=== PATIENT | female | born 1940 | race Caucasian/White ===

== ENCOUNTER → 2016-09-12 | Outpatient (CLI) | payer MEDICARE, BC ==
--- NOTE | 2016-09-13 14:18 | MAM ---
History: Well woman exam. Date of exam: 09/12/2016 Services provided: Bilateral full field digital screening mammography. CAD, the images were reviewed with R2 computer aided detection. FINDINGS: Glandular tissue is nodular in contour and of increased mammographic density. Comparison with 2014 study. No dominant mass, architectural distortion or clustered microcalcification. IMPRESSION: Benign exam Recommendation: Routine annual mammography BIRAD CATEGORY: 2 BENIGN Electronically signed by: Lin Barron MD 09/13/2016 2:18 PM CDT Workstation: [id number]
== END | disposition home or self-care (01) ==
LOC: MAMMO 15:27
PROVIDERS: ATTEND Family Medicine
DX: Z12.31 Encounter for screening mammogram for malignant neoplasm of breast (principal)

== ENCOUNTER → 2017-01-26 | Outpatient (CLI) | payer MEDICARE, BC | END | disposition home or self-care (01) | LOC: GMA 14:52 | PROVIDERS: ATTEND Family Medicine | DX: N39.0 Urinary tract infection, site not specified (principal) ==

== ENCOUNTER → 2017-03-30 | Outpatient (CLI) | payer MEDICARE, BC ==
--- NOTE | 2017-03-31 12:42 | CT ---
EXAM DESCRIPTION: Abdomen/Pelvis w/Contrast CLINICAL HISTORY: PELVIC AND PERINEAL PAIN COMPARISON: Upper GI December 23, 2015. TECHNIQUE: Postcontrast multidetector CT imaging of the abdomen and pelvis was performed. Multiplanar reconstructions were generated. This exam was performed according to our departmental dose-optimization program which includes automated exposure control, adjustment of the mA and/or kV according to patient size and/or use of iterative reconstruction technique. FINDINGS: Lung bases: No acute disease process in the lung bases. Liver: Multiple circumscribed centrally low attenuating cysts/hamartomas of the liver are present. No aggressive liver lesions demonstrated. No intrahepatic ductal dilatation. Gallbladder and biliary system: Normal age-related changes. Pancreas: Unremarkable. Spleen: Unremarkable. Adrenal glands: Normal Kidneys: Approximately 4 separate stones identified within the central right renal collecting system measuring between 2 and 3 mm respectively. Approximately 4 small stones are also identified within the contralateral left central renal collecting system measuring between 2 and 4 mm respectively. No ureteral stones are present. No aggressive renal lesions. No hydronephrosis. Bladder: No abnormal bladder mucosal enhancement. Gastrointestinal: Remote surgical changes of the left colon suspected. Correlate for surgical history. No acute gastrointestinal obstruction or inflammation is present. Small hiatal hernia seen. Pelvic organs: Unremarkable Other: No free fluid, free intraperitoneal gas or lymphadenopathy. No aggressive lytic or blastic osseous lesions are present . Usual degenerative changes noted throughout the lumbar spine. IMPRESSION: No specific CT findings explain the patient's presenting symptoms of acute pelvic/perineal pain. Nonobstructing bilateral nephrolithiasis. Incidental/chronic findings described above. Electronically signed by: Marc Barth MD 03/31/2017 12:41 PM [facility]
== END | disposition home or self-care (01) ==
LOC: CT 11:47
PROVIDERS: ATTEND Family Medicine
DX: N20.0 Calculus of kidney (principal); R10.2 Pelvic and perineal pain

== ENCOUNTER 2017-06-23 21:24 | Emergency (ER) | payer MEDICARE, BC ==
[2017-06-23 21:44] VITALS: TEMP 98; O2SAT 96
--- NOTE | 2017-06-23 22:16 | ED.PDOC ---
History of Present Illness - General Chief Complaint: Lower Extremity Injury Stated Complaint: left foot injury, rolled foot in pothole Time Seen by Provider: 06/23/17 22:04 Source: patient Exam Limitations: no limitations - History of Present Illness Initial Comments: Karen Warren 77 y/o female stated she was walking at [employer] and stepped on a shallow pothole twisted her left foot then fell to the ground landing on her right knee.Had dull pain weight bearing left foot after incident and drove herself to ER.Denies any other injuries. Occurred: just prior to arrival, this evening Pain - Lower Extremity: moderate: Left Foot Method of Injury: twisted Improving Factors: rest Worsening Factors: movement Associated Symptoms: pain left foot Allergies/Adverse Reactions: Allergies Sulfa Drugs Allergy (Verified 06/23/17 21:44) Home Medications: Ambulatory Orders Pantoprazole Sodium 07/04/14 Pravachol 07/04/14 Propranolol HCl 07/04/14 Sumatriptan 07/04/14 Tramadol HCl 50 mg PO BID #30 tab 06/23/17 Review of Systems - Review of Systems Constitutional: States: no symptoms reported EENTM: States: no symptoms reported Respiratory: States: no symptoms reported Cardiology: States: no symptoms reported Musculoskeletal: States: see HPI Neurological: States: no symptoms reported All other Systems: Reviewed and Negative, No Change from Baseline Past Medical History (General) - Patient Medical History Hx Seizures: No Hx Stroke: No Hx Dementia: No Hx Asthma: No Hx of COPD: No Hx Cardiac Disorders: No Hx Congestive Heart Failure: No Hx Pacemaker: No Hx Hypertension: No Hx Thyroid Disease: No Hx Diabetes: No Hx Gastroesophageal Reflux: Yes Hx Renal Disease: No Hx Cancer: No Hx of HIV: No Hx Hepatitis C: No Hx MRSA: No Hx Other PMH: Yes - dyslipidemia Surgical History: tonsillectomy - cataract - Vaccination History Hx Tetanus, Diphtheria Vaccination: No Hx Influenza Vaccination: Yes Hx Pneumococcal Vaccination: Yes - Social History Hx Alcohol Use: No Hx Substance Use: No Hx Substance Use Treatment: No Hx Depression: Yes Hx Physical Abuse: No Hx Emotional Abuse: No - Activities of Daily Living Grooming Ability: Independent Eating (Feeding) Ability: Independent Toileting Ability: Independent - Female History Patient : No Family Medical History - Family History Mother Family History: Unknown Hx Family Cancer: Yes - thyroid-brother Physical Exam - Physical Exam General Appearance: Alert, Comfortable, No apparent distress Eyes, Ears, Nose, Throat: normal ENT inspection Neck: full range of motion, supple Cardiovascular/Respiratory: regular rate, rhythm, no M/R/G, normal peripheral pulses, no JVD Gastrointestinal/Abdominal: non-tender, no organomegaly Back: no vertebral tenderness Thigh/Hip: no evidence of injury Leg: no evidence of injury Knee: normal ROM, other - mild abrasion/ecchymosis right knee Ankle: no evidence of injury Foot: bone tenderness - left 5th metatarsal, soft tissue tenderness - (L) 5th metatarsal, swelling - (L) 5th metatarsal Progress - Progress Progress: 06/23/17 22:21 Vital Signs - 8 hr 06/23/17 21:30 Temperature 98.0 F Pulse Rate [ 66 monitor] Respiratory 16 Rate Blood Pressure 140/75 [Left Arm] O2 Sat by Pulse 96 Oximetry Departure - Departure Clinical Impression: Fracture of metatarsal bone of left foot Qualifiers: Encounter type: initial encounter Metatarsal bone: fifth Fracture type: closed Fracture alignment: displaced Qualified Code(s): S92.352A - Displaced fracture of fifth metatarsal bone, left foot, initial encounter for closed fracture Time of Disposition: 22:43 Disposition: Discharge to Home or Self Care Condition: Fair Departure Forms: ED Discharge - Pt. Copy, Patient Portal Self Enrollment Instructions: DI for June Stress Fracture, June Stress Fracture Referrals: Jose Tavares MD [Primary Care Provider] - 1-2 Weeks Prescriptions: Tramadol HCl 50 mg PO BID #30 tab Home Medications: Ambulatory Orders Pantoprazole Sodium 07/04/14 Pravachol 07/04/14 Propranolol HCl 07/04/14 Sumatriptan 07/04/14 Tramadol HCl 50 mg PO BID #30 tab 06/23/17 Additional Instructions: follow up with primary Md in 10-14 days ;elevate left foot 20 degrees at bedtime
--- NOTE | 2017-06-23 22:35 | RAD ---
EXAM: Foot,Left 3 Views CLINICAL INDICATION: 77-year-old female status post fall on LEFT foot. TECHNIQUE: Three views LEFT foot were obtained in AP, lateral and oblique projections COMPARISON: None. FINDINGS: Minimally displaced fracture of the base of the fifth digit metatarsal. The joint spaces are preserved. No soft tissue abnormalities are seen. Mild hallux valgus deformity. Mild degenerative changes of the first metatarsal phalangeal joint with slight joint space narrowing and subchondral sclerosis. IMPRESSION: Minimally displaced fracture of the base of the fifth digit metatarsal. Electronically signed by: Harriett Mukherjee MD 06/23/2017 10:34 PM CDT
[2017-06-23] MEDS ORDERED: HYDROCOD/APAP 7.5/325 (ER DISP) #3 TAB PO ONE (22:44)
[2017-06-23 22:55] VITALS: BP 141/84
== END 2017-06-23 22:56 | disposition home or self-care (01) ==
LOC: ER 21:24
DX: S92.352A Displaced fracture of fifth metatarsal bone, left foot, initial encounter for closed fracture (principal); E78.5 Hyperlipidemia, unspecified; X50.1XXA Overexertion from prolonged static or awkward postures, initial encounter; Y92.481 Parking lot as the place of occurrence of the external cause

== ENCOUNTER → 2017-09-13 | Outpatient (CLI) | payer MEDICARE, BC ==
--- NOTE | 2017-09-15 10:48 | MAM ---
EXAM DESCRIPTION: 3D Screening BILATERAL : Digital Mammography. CLINICAL HISTORY: 77 years Female SCREENING . No complaints. No family history of breast cancer. No childbirth. Postmenopausal. HRT 5 or more years ago.. COMPARISON: 2-D digital screening bilateral study 09/12/2016. Report from prior examination also reviewed. TECHNIQUE: Bilateral CC and MLO projection full-field images, 3-D tomosynthesis digital mammographic technique. CAD not utilized. FINDINGS: The breast parenchymal density pattern is: Scattered areas of fibroglandular density. No skin thickening or nipple retraction. Bilateral solitary microcalcifications. More on the right. Denser fibroglandular tissues bilaterally in the anterior thirds predominantly. No focal, stellate mass or density, focal asymmetry , and no suspicious microcalcifications bilaterally. Stable mammograms compared to prior study, taking into account differences in mammographic technique IMPRESSION: BI-RADS CATEGORY: 2 - BENIGN FINDINGS. FOLLOW UP: Routine digital bilateral screening, one year interval from September 2017. Written communication explaining the IMPRESSION and follow-up, will be mailed to the patient and referring health care provider. According to the [employer], yearly mammograms are recommended starting at age 40 and continuing as long as a woman is in good health. Any breast change noted on a breast self-exam should be reported promptly to the patient's healthcare provider. Breast MRI is recommended for women with an approximately 20-25% or greater lifetime risk of breast cancer, including women with a strong family history of breast or ovarian cancer and women who have been treated for Hodgkin's disease. A negative mammographic report should not delay tissue diagnosis in patients with significant clinical history or physical findings. Extremely dense breast tissue limits the sensitivity of digital mammography. Electronically signed by: Fredrick Mohan MD 09/15/2017 10:47 AM CDT
== END ==
LOC: MAMMO 15:30
PROVIDERS: ATTEND Family Medicine
DX: Z12.31 Encounter for screening mammogram for malignant neoplasm of breast (principal)

== ENCOUNTER → 2018-09-20 | Outpatient (CLI) | payer MEDICARE, BC ==
--- NOTE | 2018-10-01 14:46 | MAM ---
EXAM DESCRIPTION: 3D Screening BILATERAL : Digital Mammography. CLINICAL HISTORY: 78 years Female ANNUAL SCREENING . No complaints. No personal or family history of breast cancer. Childbirth. Postmenopausal 25+ years. HRT 5 or more years ago. Lifetime risk of developing breast cancer (Tyrer-Cuzick model)(%): 2.8. COMPARISON: Bilateral screening digital breast tomosynthesis September 2017. TECHNIQUE: Bilateral CC and MLO projection full-field images, digital tomosynthesis mammographic technique. Bilateral digital 2-D full-field MLO images. and CC images. CAD not available for tomosynthesis or 2-D images. FINDINGS: The breast parenchymal density pattern is: Scattered areas of fibroglandular density. No skin thickening or nipple retraction. Most of the dense fibroglandular tissues in the anterior third of both breasts. Bilateral axillary lymph nodes. Multiple secretory type calcifications in the anterior lateral right breast. No new focal, stellate mass or density, focal asymmetry , and no suspicious microcalcifications bilaterally. Stable mammograms compared to prior study. Taking into account, differences in mammographic technique. IMPRESSION: Benign exam. BIRAD CATEGORY: 2 BENIGN FINDINGS. RECOMMENDATIONS: FOLLOW UP: Routine digital bilateral mammographic screening, one year interval from September 2018. Written communication explaining the IMPRESSION and follow-up, will be mailed to the patient and referring health care provider. According to the [employer], yearly mammograms are recommended starting at age 40 and continuing as long as a woman is in good health. Any breast change noted on a breast self-exam should be reported promptly to the patient's healthcare provider. Breast MRI is recommended for women with an approximately 20-25% or greater lifetime risk of breast cancer, including women with a strong family history of breast or ovarian cancer and women who have been treated for Hodgkin's disease. A negative mammographic report should not delay tissue diagnosis in patients with significant clinical history or physical findings. Extremely dense breast tissue limits the sensitivity of digital mammography. Electronically signed by: Fredrick Mohan MD 10/01/2018 2:43 PM CDT
== END ==
LOC: MAMMO 15:30
PROVIDERS: ATTEND Family Medicine
DX: Z12.31 Encounter for screening mammogram for malignant neoplasm of breast (principal)

== ENCOUNTER → 2019-05-30 | Outpatient (CLI) | payer MEDICARE, BC ==
--- NOTE | 2019-06-02 20:41 | RAD ---
EXAM DESCRIPTION: UGI: Rad-Fluoroscopy. CLINICAL HISTORY: GASTRO-ESOPHAGEAL REFLUX DISEASE WO ESOPHAGITIS COMPARISON: None TECHNIQUE: The patient swallowed barium pill with water. The patient swallowed gas-producing granules, water, and heavy density barium under fluoroscopic visualization. The images were obtained with the patient upright and supine.. Patient drank medium density barium through a straw in the semi-prone position. 90 fluoroscopic cine loop images. 15 static fluoroscopic images. Total fluoroscopy time was 4.1 minutes. DAP: 32.9 Gy-cm2.. FINDINGS: Contrast passing through the oropharynx into the hypopharynx and larynx showing no significant delay or mass effect. No laryngeal penetration or aspiration. Primary peristaltic wave in the proximal two thirds of the esophagus with secondary contractions and reflux in the distal third. Bilateral hernia is nonsliding and varies in size from small to medium above the diaphragm. Irregularities in the mucosa of the distal third of the esophagus with no mass effect or parenchymal scars. Possible ulcer left lateral hiatal hernia. Minimal gastroesophageal reflux not reaching the level of the ángela. No gastroesophageal obstruction or significant delay. Thickened folds on the greater curvature of the stomach. No mass effect. No obstruction or delay at the gastroduodenal junction. No intrinsic lesions or mass effect. IMPRESSION: 1. Secondary and tertiary contractions and reflux in the distal third of the esophagus. Reflux in the distal third of the esophagus. Esophagitis in the distal third. Minimal gastroesophageal reflux. Fixed hernia mild to moderate in size. Possible ulcer left lateral hernia. 2. Thickened gastric folds greater curvature could indicate gastritis. No gastroduodenal obstruction. No duodenal mucosal lesions. Electronically signed by: Fredrick Mohan MD 06/02/2019 8:40 PM [facility]
== END ==
LOC: RAD 09:19
PROVIDERS: ATTEND Family Medicine
DX: K21.0 Gastro-esophageal reflux disease with esophagitis (principal); K46.9 Unspecified abdominal hernia without obstruction or gangrene

== ENCOUNTER → 2019-05-31 | Outpatient (CLI) | payer MEDICARE, BC ==
--- NOTE | 2019-06-03 08:04 | MRI ---
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 FINDINGS: Minimal grade 1 retrolisthesis at L1-2, stable. No vertebral body fracture. Modic type I discogenic endplate signal changes at L1-2. Mottled appearance of the vertebral bodies throughout the lower thoracic and lumbar spine suggests admixture of red and yellow bone marrow. The conus lies posterior to the L1-2 disc. There is an ovoid, intradural cystic lesion in the central canal posterior to the L3 body measuring up to 14 mm craniocaudal by 6 mm AP by 8 mm transverse and resulting in mass effect on the cauda equina. The cauda equina is otherwise unremarkable. Heterogeneous appearance of the kidneys, only partially visualized. This may be related to unremarkable renal cysts. No apparent abdominal aortic aneurysm or retroperitoneal adenopathy. The paraspinal soft tissues are unremarkable. Disc desiccation throughout the lower thoracic and lumbar spine. T12-L1: Concentric disc bulging without facet joint hypertrophy. Findings result in mild to moderate left-sided neuroforaminal stenosis. L1-2: Concentric disc bulging with mild bilateral facet joint degeneration resulting in moderate bilateral neural foraminal stenosis. Grade 1 retrolisthesis as detailed above also contributes to neural foraminal stenosis at this level. L2-3: Concentric disc bulging with bilateral facet joint degeneration and ligament flavum thickening resulting in mild central canal and mild bilateral neural foraminal stenosis. L3-4: Concentric disc bulging with bilateral facet joint degeneration and ligament flavum thickening resulting in moderate central canal and mild to moderate bilateral neuroforaminal stenosis, worse on the right side. Right-sided facet joint hypertrophy results in abutment of the exiting right L3 nerve root. L4-5: Concentric disc bulging, worse in the left foraminal position, with bilateral facet joint degeneration and ligament flavum thickening resulting in mild central canal and mild left-sided neuroforaminal stenosis. L5-S1: Concentric disc bulging and bilateral facet joint degeneration without central canal or neuroforaminal stenosis. IMPRESSION: Moderate multilevel degenerative changes including degenerative disc and facet joint disease resulting in central canal and neural foraminal stenosis at several levels. Findings are slightly worse at L1-2 and L3-4 including nerve root abutment at L3-4 as detailed above. Ovoid 1.4 cm intradural cystic lesion posterior to the L3 body with mass effect on the cauda equina. This is almost certainly a benign cystic lesion such as arachnoid cyst or perineural cyst. Postcontrast imaging should be considered to document absence of enhancement. Electronically signed by: George Louise MD 06/03/2019 8:03 AM [facility]
== END ==
LOC: MRI 13:00
PROVIDERS: ATTEND Family Medicine
DX: M48.062 Spinal stenosis, lumbar region with neurogenic claudication (principal); M51.36 Other intervertebral disc degeneration, lumbar region; M51.86 Other intervertebral disc disorders, lumbar region; K21.9 Gastro-esophageal reflux disease without esophagitis